=== PATIENT | male | born 1990 | race Two or more races ===

== ENCOUNTER 2016-10-08 23:46 | Emergency (ER) | payer MEDICAID ==
[2016-10-09 00:38] VITALS: BP 149/75; PULSE 100; RESP 20; TEMP 98.5; O2SAT 99
[2016-10-09] MEDS ORDERED: Oxycodone/Acetaminophen 5/325 mg Tab PO STA (00:57)
[2016-10-09] MEDS ORDERED: Oxycodone/Acetaminophen 5/325 mg Tab ONE (01:02)
--- NOTE | 2016-10-09 01:05 | C.PDOC ---
History Of Present Illness A 25 y/o male c/o left upper tooth aches that is intermittent for 4 weeks. Pt was referred to oral surgeon for a wisdom tooth extraction but unable to due to insurance problems. Pt reports taking OTC meds with little relief. Pt denies trauma, fever, chills, facial swelling, headache, or any other complaints. Time Seen by Provider: 10/09/16 00:42 Chief Complaint (Nursing): Dental Pain History Per: Patient History/Exam Limitations: no limitations Onset/Duration Of Symptoms: Days Current Symptoms Are (Timing): Still Present Severity: Mild Quality: Positive for: Aching Recent travel outside of the [place]: No Additional History Per: Patient Past Medical History Reviewed: Historical Data, Nursing Documentation, Vital Signs Vital Signs: Last Vital Signs Temp 98.5 F 10/09/16 00:37 Pulse 100 H 10/09/16 00:37 Resp 20 10/09/16 01:09 BP 149/75 10/09/16 00:37 Pulse Ox 99 10/09/16 02:40 Family History: States: Unknown Family Hx - Social History Hx Tobacco Use: Yes Hx Alcohol Use: Yes Hx Substance Use: No - Immunization History Hx Tetanus Toxoid Vaccination: No Hx Influenza Vaccination: No Hx Pneumococcal Vaccination: No Review Of Systems Constitutional: Negative for: Fever, Chills, Other (Trauma) ENT: Positive for: Mouth Pain (Left upper tooth aches). Negative for: Other ( Facial swelling) Neurological: Negative for: Headache Physical Exam - Physical Exam Appears: Non-toxic, No Acute Distress Skin: Warm, Dry Head: Atraumatic, Normacephalic Eye(s): bilateral: Normal Inspection, PERRL Oral Mucosa: Moist Teeth: No Dentures, Other (Impacted left upper posterior molar. No localized tenderness, no swelling, no erythema) Gingiva: No Erythema, No Swelling, Tender (left upper post), No Abscess Throat: Normal, No Exudate Cardiovascular: Rhythm Regular, No Murmur Respiratory: Normal Breath Sounds Neurological/Psych: Oriented x3, Normal Speech, Normal Cognition ED Course And Treatment O2 Sat by Pulse Oximetry: 99 (RA) Pulse Ox Interpretation: Normal Progress Note: Impression: 25 y/o c/o left upper tooth aches for 4 weeks. Plans : OxyCODONE, reassess. Pt is in no acute distress and has improvements with tooth pain. Pt was advised to visit dentist with 1-2 days for evaluation. Disposition Counseled Patient/Family Regarding: Diagnosis, Need For Followup, Rx Given - Disposition Referrals: [facility], Dental Clinic [Other] Disposition: HOME/ ROUTINE Disposition Time: 01:03 Condition: STABLE Additional Instructions: Please follow up in dental clinic at [place] Take meds as directed Return to ER if worse Prescriptions: Acetaminophen with Codeine [Tylenol with Codeine #3 Tablet] 1 - 2 each PO QID # 14 tablet Ibuprofen [Motrin Tab] 800 mg PO QID #20 tab Instructions: Toothache (ED) - Clinical Impression Clinical Impression: Pain, dental - Scribe Statement The provider has reviewed the documentation as recorded by the Scribe López mendoza All medical record entries made by the Wendyibgerardo were at my direction and personally dictated by me. I have reviewed the chart and agree that the record accurately reflects my personal performance of the history, physical exam, medical decision making, and the department course for this patient. I have also personally directed, reviewed, and agree with the discharge instructions and disposition.
== END 2016-10-09 01:09 | disposition home or self-care (01) ==
LOC: C.ER 23:46
DX: K08.89 Other specified disorders of teeth and supporting structures (principal)

== ENCOUNTER 2018-06-29 10:16 | Day surgery (SDC) | payer MEDICAID ==
--- NOTE | 2018-06-29 10:57 | C.PDOC ---
Time Seen by Provider: 06/29/18 10:31 Chief Complaint (Nursing): Abnormal Skin Integrity Past Medical History Vital Signs: Last Vital Signs Temp 98.1 F 06/29/18 10:24 Pulse 81 06/29/18 10:24 Resp 20 06/29/18 10:24 BP 144/74 06/29/18 10:24 Pulse Ox 98 06/29/18 10:24 Family History: States: Unknown Family Hx, MD (father ()) - Social History Hx Tobacco Use: Yes Hx Alcohol Use: Yes Hx Substance Use: Yes - Immunization History Hx Tetanus Toxoid Vaccination: No Hx Influenza Vaccination: No Hx Pneumococcal Vaccination: No ED Course And Treatment O2 Sat by Pulse Oximetry: 98 Disposition - Disposition Forms: [facility] ([place])
--- NOTE | 2018-06-29 10:57 | C.PDOC ---
History Of Present Illness 27 year old male, with no significant past medical history, presents to the ED after being sent by Dr. Gonsalves for a hernia repair. Patient reports hernia located in his right groin area and reports pain with bending over. He denies fever, chills, and does not offer any additional complaints at this time. Patient denies surgical history at this time. Time Seen by Provider: 06/29/18 10:31 Chief Complaint (Nursing): Abnormal Skin Integrity History Per: Patient History/Exam Limitations: no limitations Onset/Duration Of Symptoms: Hrs Current Symptoms Are (Timing): Still Present Quality Of Symptoms: Painful Additional History Per: Patient Past Medical History Reviewed: Historical Data, Nursing Documentation, Vital Signs Vital Signs: Last Vital Signs Temp 98.1 F 06/29/18 10:24 Pulse 81 06/29/18 10:24 Resp 20 06/29/18 10:24 BP 144/74 06/29/18 10:24 Pulse Ox 98 06/29/18 10:24 - Medical History PMH: No Chronic Diseases Surgical History: No Surg Hx Family History: States: [place] (father ()) - Social History Hx Tobacco Use: Yes Hx Alcohol Use: Yes Hx Substance Use: Yes - Immunization History Hx Tetanus Toxoid Vaccination: No Hx Influenza Vaccination: No Hx Pneumococcal Vaccination: No Review Of Systems Constitutional: Negative for: Fever, Chills Musculoskeletal: Positive for: Other (right groin pain ) Physical Exam - Physical Exam Appears: Non-toxic, No Acute Distress Skin: Normal Color, Warm, Dry Head: Atraumatic, Normacephalic Eye(s): bilateral: Normal Inspection Oral Mucosa: Moist Neck: Supple Chest: Symmetrical, No Deformity, No Tenderness Cardiovascular: Rhythm Regular, No Murmur Respiratory: Normal Breath Sounds, No Rales, No Rhonchi, No Wheezing Gastrointestinal/Abdominal: Soft, No Tenderness, No Guarding, No Rebound, Hernia (palpable right inguinal hernia that is reducible ) Extremity: Normal ROM, Capillary Refill (less than 2 seconds) Neurological/Psych: Normal Speech, Normal Cognition ED Course And Treatment O2 Sat by Pulse Oximetry: 98 (on RA) Pulse Ox Interpretation: Normal Medical Decision Making Medical Decision Making: Assessment: right inguinal hernia Plan: * bloodwork * urinalysis * reassess and disposition Progress: Bloodwork and urinalysis ordered and reviewed. Disposition Discussed With : Harvey Gonsalves Doctor Will See Patient In The: Hospital - Disposition Disposition: HOSPITALIZED Disposition Time: 10:57 Condition: FAIR Forms: [facility] (American) - Clinical Impression Clinical Impression: Inguinal hernia - Scribe Statement The provider has reviewed the documentation as recorded by the Scribe (Joellen Escobedo) Provider Attestation: All medical record entries made by the Scribe were at my direction and personally dictated by me. I have reviewed the chart and agree that the record accurately reflects my personal performance of the history, physical exam, medical decision making, and the department course for this patient. I have also personally directed, reviewed, and agree with the discharge instructions and disposition.
[2018-06-29] MEDS ORDERED: Sodium Chloride 0.9% 1,000 ML IV ONE (11:09)
[2018-06-29] MEDS ORDERED: Sodium Chloride 0.9% 1,000 ML ONE (11:11)
[2018-06-29 11:23] LABS: BASO % 0.7 % (0.0-2.0); EOS # 0.2 K/uL (0.0-0.7); HEMOGLOBIN 13.4 g/dL (12.0-18.0); LYMPH # 1.6 K/uL (1.0-4.3); MEAN CELL VOLUME 93.2 fL (80.0-94.0); MEAN CORPUSCULAR HEMOGLOBIN 31.1 pg (27.0-31.0); MEAN CORPUSCULAR HGB CONC 33.4 g/dL (33.0-37.0); MEAN PLATELET VOLUME 8.6 fL (7.2-11.7); MONO # 0.4 K/uL (0.0-0.8); MONO % 11.6 % (0.0-10.0); NEUT # 1.6 K/uL (1.8-7.0); NEUT % 42.7 % (50.0-75.0); RBC 4.29 Mil/uL (4.40-5.90); RED CELL DISTRIBUTION WIDTH 13.5 % (11.5-14.5); WHITE BLOOD COUNT 3.8 K/uL (4.8-10.8)
[2018-06-29 11:29] LABS: INR 1.1
[2018-06-29 11:34] LABS: ALB/GLOB RATIO 1.9 (1.0-2.1); ALBUMIN 4.7 g/dL (3.5-5.0); ALT/SGPT 33 U/L (21-72); AST/SGOT 36 U/L (17-59); BLOOD UREA NITROGEN 10 mg/dL (9-20); CALCIUM 9.1 mg/dl (8.6-10.4); GFR NON-AFRICAN AMERICAN > 60
[2018-06-29] MEDS ORDERED: Midazolam 2 MG/2 ML VIAL ONE (13:08)
[2018-06-29] MEDS ORDERED: Propofol 10 mg/ml Inj (20 ML) ONE (13:08)
[2018-06-29] MEDS ORDERED: ceFAZolin 1 gm in NS 2 GM/200 ML BAG IVPB ONE (13:09)
[2018-06-29] MEDS ORDERED: ceFAZolin 1 gm in NS 1 GM/100 ML BAG IVPB ONE (13:10)
[2018-06-29] MEDS ORDERED: Bupivacaine 0.25% 20 ML INJ IJ ONE (13:25)
[2018-06-29] MEDS ORDERED: Oxycodone/Acetaminophen 5/325 mg Tab PO PRN (14:20)
[2018-06-29] MEDS: HYDROmorphone 0.5 mg/0.5 ml ISec IVP PRN ×3 (14:38→15:38)
[2018-06-29 17:09] VITALS: BP 134/80; PULSE 59; RESP 20; TEMP 97.9; O2SAT 97
--- NOTE | 2018-06-30 00:52 | OP ---
PROCEDURE DATE: 06/29/2018 PREOPERATIVE DIAGNOSIS: Incarcerated right inguinal hernia. POSTOPERATIVE DIAGNOSIS: Incarcerated right inguinal hernia. PROCEDURE PERFORMED: Repair of incarcerated right inguinal hernia with mesh. SURGEON: Harvey Gonsalves MD ANESTHESIA: General. BLOOD LOSS: 20 mL. POSTOPERATIVE CONDITION: Stable. INDICATIONS FOR SURGERY: A 27-year-old male seen in emergency room today with an incarcerated right inguinal hernia, taken to the OR for urgent repair. GROSS FINDINGS: There was incarcerated indirect right inguinal hernia, it contained a sliding component of bowel. There were no other abnormal findings. DESCRIPTION OF PROCEDURE: The patient was taken to the operating room. General anesthesia was administered. The right lower abdomen was prepped and draped. A standard right inguinal incision was made. The external oblique aponeurosis was opened and the spermatic cord was looped with a João drain. The large hernia sac was identified, its contents were reduced, and it was carefully dissected free down to its base. Bleeding was controlled using the Bovie. The testicular artery was noted to be oozing and this was repaired with a single 7-0 Prolene stitch. A large cord lipoma was removed and sent for specimen. The sac was dissected free down to the base of the cord, was then inverted, and a large ProLoop plug was inserted into the defect. It was sutured in place with interrupted 2-0 Prolene suture. Wound was irrigated with copious amounts of saline and it was closed in layers with Monocryl and skin clips. The patient tolerated the procedure well, returned to recovery room in stable condition. Harvey Gonsalves MD
== END 2018-06-29 22:42 | disposition home or self-care (01) ==
LOC: C.ER 10:16 → C.SDS 11:06 → UNDOADMIN 14:22 → C.9S 14:22 → C.5S 16:57 → C.SDS 22:42 → UNDODISIN 22:42
PROVIDERS: ATTEND Surgery
DX: K40.30 Unilateral inguinal hernia, with obstruction, without gangrene, not specified as recurrent (principal); Z87.891 Personal history of nicotine dependence
CPT/HCPCS: 36415; 49507; 80053; 82948; 85025; 85610; 85730; 86850; 86900; 96360; 99285; C1781; J0690; J1170; J2250; J2704; J3010; J7030